=== PATIENT | female | born 1990 | race Caucasian/White ===

== ENCOUNTER 2018-01-03 12:20 | Emergency (ER) | payer OTHER ==
[2018-01-03 13:42] LABS: ADD MAN DIFF? NO
[2018-01-03 13:45] LABS: BASOPHILS % 0.4 % (0.0-2.0); EOSINOPHILS % 0.3 % (0.0-7.0); HEMATOCRIT 37.6 % (37.0-47.0); HEMOGLOBIN 12.8 g/dl (12.0-16.0); LYMPHOCYTES # 1.4 10^3/ul (0.8-2.9); LYMPHOCYTES % 13.9 % (15.0-51.0); MEAN CORPUSCULAR VOLUME 85.3 fl (82.0-101.0); MEAN PLATELET VOLUME 9.3 fl (7.4-10.4); MONOCYTE # 0.6 10^3/ul (0.3-0.9); MONOCYTES % 5.7 % (0.0-11.0); NEUTROPHILS % 79.3 % (39.0-77.0); PLATELET COUNT 227 10^3/UL (140-415); RED BLOOD COUNT 4.41 10^6/ul (4.20-5.40); RED CELL DISTRIBUTION WIDTH 12.7 % (11.5-14.5)
[2018-01-03 13:45] LABS: WHITE BLOOD COUNT 10.1 10^3/ul (4.8-10.8)
[2018-01-03 14:02] LABS: UR BACTERIA FEW /HPF (NONE SEEN); UR RBC 2 /HPF (0-5); UR WBC 0 /HPF (0-5)
[2018-01-03 14:06] LABS: ADD UMIC YES; UR ASCORBIC ACID NEGATIVE (NEGATIVE); UR BILIRUBIN (Dip) NEGATIVE (NEGATIVE); UR BLOOD (Dip) 3+ mg/dL (NEGATIVE); UR CLARITY CLEAR (CLEAR); UR COLOR COLORLESS (YELLOW); UR GLUCOSE (Dip) NEGATIVE (NEGATIVE); UR KETONES (Dip) NEGATIVE (NEGATIVE); UR LEUKOCYTE ESTERASE (Dip) NEGATIVE Leu/ul (NEGATIVE); UR NITRITE (Dip) NEGATIVE (NEGATIVE); UR SPECIFIC GRAVITY (Dip) 1.004 (1.003-1.030); UR TOTAL PROTEIN (Dip) NEGATIVE (NEGATIVE); UR UROBILINOGEN (Dip) NEGATIVE (NEGATIVE)
== END 2018-01-03 16:00 | disposition home or self-care (01) ==
LOC: FTE 12:20
DX: O20.9 Hemorrhage in early pregnancy, unspecified (principal); R10.2 Pelvic and perineal pain; Z3A.08 8 weeks gestation of pregnancy
CPT/HCPCS: 36415; 76801; 81001; 84702; 85025; 86900; 86901; 99284-25

== ENCOUNTER 2018-07-11 17:55 | Inpatient (IN) | payer OTHER ==
[2018-08-12] MEDS: LACTATED RINGER'S 1,000 ML IV* ×3 (09:58→22:45)
[2018-08-12] MEDS ORDERED: BUTORPHANOL 2 MG INJ IV (10:00)
[2018-08-12] MEDS ORDERED: MISOPROSTOL 200 MCG TAB PR ×2 (10:00→20:30)
[2018-08-12] MEDS ORDERED: LIDOCAINE 1% (MPF) 30 ML INJ INJ (10:00)
[2018-08-12] MEDS ORDERED: OXYTOCIN 30 UNITS/LR 500 ML IV ×2 (10:00→20:30)
[2018-08-12] MEDS ORDERED: MINERAL OIL LIGHT 10 ML VIAL TOP (10:00)
[2018-08-12] MEDS ORDERED: CARBOPROST 250 MCG INJ IM ×2 (10:00→20:30)
[2018-08-12] MEDS ORDERED: METHYLERGONOVINE 0.2 MG INJ IM ×2 (10:00→20:30)
[2018-08-12 10:12] LABS: ADD MAN DIFF? NO
[2018-08-12 10:17] LABS: BASOPHILS % 0.3 % (0.0-2.0); EOSINOPHILS % 0.3 % (0.0-7.0); HEMATOCRIT 31.1 % (37.0-47.0); HEMOGLOBIN 9.7 g/dl (12.0-16.0); LYMPHOCYTES # 1.2 10^3/ul (0.8-2.9); LYMPHOCYTES % 11.9 % (15.0-51.0); MEAN CORPUSCULAR HEMOGLOBIN 23.6 pg (29.0-33.0); MEAN CORPUSCULAR HGB CONC 31.2 g/dl (32.0-37.0); MEAN CORPUSCULAR VOLUME 75.7 fl (82.0-101.0); MEAN PLATELET VOLUME 11.3 fl (7.4-10.4); MONOCYTE # 0.5 10^3/ul (0.3-0.9); MONOCYTES % 5.3 % (0.0-11.0); NEUTROPHIL # 8.2 10^3/ul (1.6-7.5); NEUTROPHILS % 81.5 % (39.0-77.0); PLATELET COUNT 182 10^3/UL (140-415); RED BLOOD COUNT 4.11 10^6/ul (4.20-5.40); RED CELL DISTRIBUTION WIDTH 16.3 % (11.5-14.5)
[2018-08-12 10:36] LABS: INR 0.87; PROTIME 11.9 Sec (11.9-14.9); PT RATIO 0.9
[2018-08-12 10:37] LABS: PARTIAL THROMBOPLASTIN TIME 27.2 Sec (23.0-35.0)
[2018-08-12] MEDS ORDERED: LIDOCAINE 0.5% (SDV) 50 ML INJ (14:45)
[2018-08-12] MEDS: OXYTOCIN 30 UNITS/LR 500 ML IV ×2 (17:33→17:39)
[2018-08-12 18:54] LABS: RAPID PLASMA REAGIN NONREACTIVE (NR)
[2018-08-12] MEDS: IBUPROFEN 600 MG TAB PO (19:45)
[2018-08-12] MEDS ORDERED: ZOLPIDEM 5 MG TAB PO (20:30)
[2018-08-12] MEDS ORDERED: HYDROCODONE/APAP (5/325) TAB PO (20:30)
[2018-08-12] MEDS ORDERED: WITCH HAZEL/GLYCERIN PAD PR (20:30)
[2018-08-12] MEDS ORDERED: DIBUCAINE 1% 30 GM OINT PR (20:30)
[2018-08-12] MEDS: MAGNESIUM HYDROXIDE 30ML CUP PO (21:00)
[2018-08-12] MEDS: SENNA/DOCUSATE NA (8.6MG/50MG) TAB PO (21:00)
[2018-08-12] MEDS: LANOLIN 7 GM TUBE TOP (21:27)
[2018-08-12] MEDS: BENZOCAINE 20% 56 ML SPRAY TOP (21:28)
[2018-08-12] MEDS: HYDROCODONE/APAP (5/325) TAB PO (22:45)
[2018-08-13] MEDS: IBUPROFEN 600 MG TAB PO ×5 (00:19→23:26)
[2018-08-13] MEDS: LACTATED RINGER'S 1,000 ML IV* ×3 (04:01→20:01)
[2018-08-13 07:05] LABS: ADD MAN DIFF? NO
[2018-08-13 07:13] LABS: WHITE BLOOD COUNT 11.1 10^3/ul (4.8-10.8)
[2018-08-13 07:13] LABS: BASOPHILS % 0.2 % (0.0-2.0); EOSINOPHILS % 0.2 % (0.0-7.0); HEMATOCRIT 28.9 % (37.0-47.0); LYMPHOCYTES # 1.3 10^3/ul (0.8-2.9); LYMPHOCYTES % 11.8 % (15.0-51.0); MEAN CORPUSCULAR HEMOGLOBIN 23.6 pg (29.0-33.0); MEAN CORPUSCULAR HGB CONC 31.1 g/dl (32.0-37.0); MEAN CORPUSCULAR VOLUME 75.9 fl (82.0-101.0); MEAN PLATELET VOLUME 11.4 fl (7.4-10.4); MONOCYTE # 0.7 10^3/ul (0.3-0.9); MONOCYTES % 6.7 % (0.0-11.0); NEUTROPHIL # 8.9 10^3/ul (1.6-7.5); PLATELET COUNT 176 10^3/UL (140-415); RED BLOOD COUNT 3.81 10^6/ul (4.20-5.40); RED CELL DISTRIBUTION WIDTH 16.5 % (11.5-14.5)
[2018-08-13] MEDS: MAGNESIUM HYDROXIDE 30ML CUP PO ×2 (09:00→21:19)
[2018-08-13] MEDS: SENNA/DOCUSATE NA (8.6MG/50MG) TAB PO ×2 (09:00→21:19)
[2018-08-13] MEDS ORDERED: MIDAZOLAM 1 MG/ML 2 ML INJ (13:16)
[2018-08-13] MEDS ORDERED: FENTAnyl 50 MCG/ML VIAL (13:32)
[2018-08-13] MEDS ORDERED: CEFAZOLIN 1 GM INJ (13:33)
[2018-08-13] MEDS ORDERED: ONDANSETRON 4 MG INJ (13:38)
[2018-08-13] MEDS ORDERED: FAMOTIDINE 20 MG INJ (13:38)
[2018-08-13] MEDS: BUPIVACAINE 0.25%/EPI (SDV) 30 ML INJ (13:57)
[2018-08-13] MEDS: BUTORPHANOL 2 MG INJ IM (15:00)
[2018-08-13] MEDS: KETOROLAC 60 MG INJ IM (15:34)
[2018-08-13] MEDS: CEPHALEXIN 500 MG CAP PO ×2 (18:41→23:26)
[2018-08-13] MEDS: LACTATED RINGER'S 1,000 ML IV (18:41)
[2018-08-13 19:20] LABS: HEPATITIS B SURFACE ANTIGEN NEGATIVE (NEGATIVE)
[2018-08-14] MEDS: LACTATED RINGER'S 1,000 ML IV (00:31)
[2018-08-14] MEDS: IBUPROFEN 600 MG TAB PO ×3 (05:35→17:25)
[2018-08-14] MEDS: CEPHALEXIN 500 MG CAP PO ×3 (05:35→17:25)
[2018-08-14] MEDS: DIPHTH/TET/ACEL PERTUSS (ADULT) 0.5 ML VIAL IM* (07:55)
[2018-08-14] MEDS: MEASLES,MUMPS,RUBELLA VACCINE INJ SC* (07:56)
[2018-08-14] MEDS: VARICELLA VACCINE LIVE/PF 1,350 UNIT/0.5 ML ML SC* (07:56)
[2018-08-14] MEDS: SENNA/DOCUSATE NA (8.6MG/50MG) TAB PO (09:16)
[2018-08-14] MEDS: MAGNESIUM HYDROXIDE 30ML CUP PO (09:16)
== END 2018-08-14 18:53 | disposition home or self-care (01) | DRG 798 ==
LOC: OBT 17:55 → L-D 08-12 08:43 → OBT 08-12 09:20 → L-D 08-12 09:13 → PP1 08-12 19:49
PROVIDERS: Obstetrics & Gynecology
PROC: 0UB70ZZ Excision of Bilateral Fallopian Tubes, Open Approach (ICD-10-PCS; 2018-08-13 12:30)
PROC: 10E0XZZ Delivery of Products of Conception, External Approach (ICD-10-PCS; principal; 2018-08-13 13:15)
PROC: 0HQ9XZZ Repair Perineum Skin, External Approach (ICD-10-PCS; 2018-08-13 13:15)
PROC: 4A1HXCZ Monitoring of Products of Conception, Cardiac Rate, External Approach (ICD-10-PCS; 2018-08-13 13:15)
DX: O70.0 First degree perineal laceration during delivery (principal); Z37.0 Single live birth; O69.81X0 Labor and delivery complicated by cord around neck, without compression, not applicable or unspecified; Z3A.39 39 weeks gestation of pregnancy; Z30.2 Encounter for sterilization
CPT/HCPCS: 85025; 85610; 85730; 86592; 86900; 86901; 87086; 87340; 88302; 90715; 90716